=== PATIENT | male | born 1965 | race American Indian/Alaskan Native ===

== ENCOUNTER 2018-04-18 15:08 | Emergency (ER) | payer SELFPAY ==
[2018-04-18] MEDS ORDERED: DECADRON IM ONE (17:03)
[2018-04-18] MEDS ORDERED: NORCO 5/325 PO ONE (17:03)
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
[2018-04-18 17:50] VITALS: BP 168/110
[2018-04-18] MEDS ORDERED: NORVASC PO ONE (17:55)
== END 2018-04-18 18:23 | disposition home or self-care (01) ==
LOC: ED 15:08
DX: I10 Essential (primary) hypertension (principal); G89.29 Other chronic pain; Z76.0 Encounter for issue of repeat prescription; Z88.6 Allergy status to analgesic agent
CPT/HCPCS: 96372; 99282; J1100